=== PATIENT | male | born 1945 | race Two or more races ===

== ENCOUNTER 2017-03-24 18:41 | Inpatient (IN) | payer OTHER ==
[~2017-03-24] VITALS: Ht 162.6 cm; Wt 54.4 kg
[2017-03-24 20:21] LABS: Basophils # (auto) 0 uL; Basophils % (auto) 0.3 % (0.0-2.0); Eosinophils # (auto) 0 uL; Eosinophils % (auto) 0.1 % (0.0-7.0); Hematocrit 33.5 % (41.0-53.0); Hemoglobin 11.3 g/dL (13.5-17.5); Lymphocytes % (auto) 7.3 % (10.0-50.0); Mean Corpuscular Hgb Conc. 33.7 g/dL (32.0-36.0); Monocytes # (auto) 1.5 uL; Monocytes % (auto) 10.7 % (0.0-12.0); Neutrophils # (auto) 11.4 uL; Neutrophils % (auto) 81.6 % (37.0-80.0); Nucleated Red Blood Cells % 0.1 %; Platelet Count (auto) 358 10^3/uL (140-450); Red Blood Cells 3.42 10^6/uL (4.5-5.90); Red Cell Distribution Width 15.1 % (11.8-14.3)
[2017-03-24] MEDS ORDERED: SODIUM CHLORIDE 0.9% 1,000 ML IVB ONE (20:27)
[2017-03-24] MEDS ORDERED: SODIUM CHLORIDE 0.9% 500 ML IVB ONE (20:27)
[2017-03-24 20:30] LABS: Alanine Aminotransferase 99 U/L (16-61); Albumin 3.2 g/dL (3.4-5.0); Alkaline Phosphatase 787 U/L (45-117); Anion Gap 16 (5-15); Aspartate Aminotransferase 197 U/L (15-37); BUN/Creatinine Ratio 54.1; Bilirubin, Total 2.9 mg/dL (0.2-1.0); Calcium 9.5 mg/dL (8.5-10.1); Carbon Dioxide 23 mmol/L (21-32); Chloride 89 mmol/L (98-107); GFR African American 44 mL/min; GFR Non-African American 36 mL/min; Glucose 137 mg/dL (74-106); Potassium 4.6 mmol/L (3.5-5.1); Sodium 128 mmol/L (136-145); Total Protein 8.1 g/dL (6.4-8.2)
[2017-03-24] MEDS ORDERED: ONDANSETRON HCL 4 MG/2 ML VIAL IV ONE (20:30)
[2017-03-24 21:06] LABS: Blood Urea Nitrogen 106 mg/dL (7-18)
[2017-03-24 22:32] LABS: Lactic Acid w/Reflex 2.5 mmol/L (0.4-2.0)
[2017-03-24 22:38] LABS: INR 1.05 (0.9-1.15); Partial Thromboplastin Time 29.4 sec (22.64-33.71); Prothrombin Time 11.4 sec (9.37-12.3)
[2017-03-24] MEDS ORDERED: HYDROcodone-ACET 5/325MG TAB PO PRN (23:30)
[2017-03-24] MEDS ORDERED: ACETAMINOPHEN 325 MG TAB PO PRN (23:30)
[2017-03-24] MEDS ORDERED: MORPHINE SULF INJ 2 MG/ML SYRINGE 1ML IV PRN (23:30)
[2017-03-24] MEDS ORDERED: ONDANSETRON HCL 4 MG/2 ML VIAL IV PRN (23:30)
[2017-03-24] MEDS ORDERED: PPN PER PHARMACY 0 ML IV SCH (23:30)
[2017-03-24] MEDS ORDERED: NITROGLYCERIN 0.4 MG SL TAB SL PRN (23:30)
[2017-03-24] MEDS ORDERED: cefTRIAXone 1GM/10ml IVPUSH 10 ML IV ONE (23:45)
[2017-03-25 00:49] LABS: Urine Bacteria MOD /hpf (None Seen); Urine Blood Negative /uL (Negative); Urine Hyaline Cast MANY /lpf (0 - 2); Urine Mucus FEW (None Seen); Urine Specific Gravity 1.014 (1.001-1.035); Urine WBC 1 /hpf (0 - 3)
[2017-03-25 03:30] VITALS: BP 99/58
[2017-03-25 05:00] VITALS: BP 99/58
[2017-03-25 06:20] LABS: Basophils # (auto) 0 uL; Eosinophils # (auto) 0 uL; Eosinophils % (auto) 0.2 % (0.0-7.0); Hemoglobin 9.5 g/dL (13.5-17.5); Lymphocytes # (auto) 0.9 uL; Lymphocytes % (auto) 7.4 % (10.0-50.0); Monocytes # (auto) 1.4 uL; Neutrophils # (auto) 9.8 uL; White Blood Cell 12.1 10^3/uL (4.4-10.8)
[2017-03-25 06:22] LABS: Hematocrit 27.6 % (41.0-53.0); Mean Corpuscular Hemoglobin 33.7 pg (28.0-32.0); Mean Corpuscular Hgb Conc. 34.3 g/dL (32.0-36.0); Mean Corpuscular Volume 98.3 fL (80.0-100.0); Monocytes % (auto) 11.5 % (0.0-12.0); Neutrophils % (auto) 80.9 % (37.0-80.0); Platelet Count (auto) 292 10^3/uL (140-450); Red Cell Distribution Width 15.3 % (11.8-14.3)
[2017-03-25 06:56] LABS: Albumin 2.6 g/dL (3.4-5.0); BUN/Creatinine Ratio 68.2; Bilirubin, Total 2.4 mg/dL (0.2-1.0); Calcium 8.7 mg/dL (8.5-10.1); Total Protein 6.5 g/dL (6.4-8.2)
[2017-03-25 07:22] VITALS: BP 108/58
[2017-03-25 07:41] LABS: Magnesium 2.8 mg/dL (1.6-2.6)
[2017-03-25] MEDS ORDERED: ENOXAPARIN SOD 30 MG/0.3 ML SYRINGE SC SCH (10:00)
[2017-03-25] MEDS: PANTOPRAZOLE 40 MG/10 ML VIAL IV SCH (11:02)
[2017-03-25] MEDS ORDERED: GOLYTELY 4L KIT PO ONE (12:00)
[2017-03-25 12:13] VITALS: BP 92/52
[2017-03-25 17:07] VITALS: BP 103/49
[2017-03-25] MEDS ORDERED: PPN PER PHARMACY IV NR ×7 (20:00)
[2017-03-25] MEDS: ATORVASTATIN 20 MG TAB PO SCH (21:45)
[2017-03-25] MEDS: cefTRIAXone 1GM/10ml IVPUSH 10 ML IV SCH (21:47)
[2017-03-25 22:00] VITALS: BP 104/53
[2017-03-26] VITALS (7 sets, daily range): BP systolic 95–105; BP diastolic 50–59
[2017-03-26] MEDS ORDERED: DEXTROSE (50%) 50ML SYRG IV SCH
[2017-03-26] MEDS: ACCU-CHEK COMFORT CURVE STRIP VI SCH ×4 (00:52→18:25)
[2017-03-26] MEDS: InsuLIN REG 1unit/0.01ml Soln (100units/ml) SC SCH ×4 (00:53→18:00)
[2017-03-26] MEDS ORDERED: GOLYTELY 4L KIT PO ONE (06:00)
[2017-03-26 07:09] LABS: % Iron Saturation 34.8 % (20-55)
[2017-03-26 07:10] LABS: Bilirubin, Total 2.1 mg/dL (0.2-1.0); Calcium 9.4 mg/dL (8.5-10.1); Phosphorus 1.3 mg/dL (2.5-4.90); Potassium 3.4 mmol/L (3.5-5.1); Total Protein 6.6 g/dL (6.4-8.2)
[2017-03-26 07:11] LABS: Albumin 2.6 g/dL (3.4-5.0); Magnesium 2.6 mg/dL (1.6-2.6); Pre Albumin 8.6 mg/dL (20.0-40.0)
[2017-03-26 08:07] LABS: Urine Bacteria NONE SEEN /hpf (None Seen); Urine Blood Negative /uL (Negative); Urine Specific Gravity 1.015 (1.001-1.035); Urine WBC <1 /hpf (0 - 3)
[2017-03-26 08:12] LABS: Protein, Urine 16.7 mg/dL (0.0-11.9)
[2017-03-26] MEDS ORDERED: MIDAZOLAM HCL 5 MG/ML-1ML VIAL ONE (08:13)
[2017-03-26] MEDS ORDERED: diphenhdrAMINE HCL 50 MG/1 ML VL ONE (08:13)
[2017-03-26] MEDS ORDERED: fentaNYL CITRATE 100 MCG/2 ML VL ONE (08:13)
[2017-03-26] MEDS ORDERED: SODIUM CHLORIDE LOCK 10 ML ONE (08:13)
[2017-03-26] MEDS ORDERED: NALOXONE HCL 0.4 MG/ML VIAL ONE (08:14)
[2017-03-26] MEDS ORDERED: FLUMAZENIL 0.1 MG/ML INJ 10ML MDV IV ONE (08:14)
[2017-03-26] MEDS ORDERED: POTASSIUM CHL 20MEQ/100ML 100 ML IV ONE (10:00)
[2017-03-26] MEDS: ENOXAPARIN SOD 40 MG/0.4 ML SYRINGE SC SCH (10:00)
[2017-03-26] MEDS: PANTOPRAZOLE 40 MG/10 ML VIAL IV SCH (10:54)
[2017-03-26] MEDS ORDERED: SODIUM PHOSP 40 MEQ in D5W 5% 250 ML IV ONE (11:00)
[2017-03-26] MEDS ORDERED: PPN PER PHARMACY IV NR ×9 (20:00)
[2017-03-26] MEDS: cefTRIAXone 1GM/10ml IVPUSH 10 ML IV SCH (21:20)
[2017-03-26] MEDS: ATORVASTATIN 20 MG TAB PO SCH (22:14)
[2017-03-27] MEDS: ACCU-CHEK COMFORT CURVE STRIP VI SCH ×4 (00:57→17:36)
[2017-03-27 05:28] VITALS: BP 110/57
[2017-03-27] MEDS: InsuLIN REG 1unit/0.01ml Soln (100units/ml) SC SCH ×4 (06:00→17:36)
[2017-03-27 06:59] LABS: Basophils # (auto) 0 uL; Basophils % (auto) 0.1 % (0.0-2.0); Eosinophils # (auto) 0 uL; Eosinophils % (auto) 0.2 % (0.0-7.0); Hematocrit 26.6 % (41.0-53.0); Hemoglobin 9.1 g/dL (13.5-17.5); Lymphocytes # (auto) 1.1 uL; Lymphocytes % (auto) 9.5 % (10.0-50.0); Mean Corpuscular Hemoglobin 33.8 pg (28.0-32.0); Mean Corpuscular Volume 99.3 fL (80.0-100.0); Monocytes # (auto) 1.3 uL; Neutrophils # (auto) 9.2 uL; Neutrophils % (auto) 79.2 % (37.0-80.0); Nucleated Red Blood Cells % 0.1 %; Platelet Count (auto) 253 10^3/uL (140-450); Red Blood Cells 2.68 10^6/uL (4.5-5.90); Red Cell Distribution Width 15.5 % (11.8-14.3); White Blood Cell 11.6 10^3/uL (4.4-10.8)
[2017-03-27 07:22] LABS: Albumin 2.2 g/dL (3.4-5.0); BUN/Creatinine Ratio 37.6; Bilirubin, Total 1.9 mg/dL (0.2-1.0); Calcium 8.5 mg/dL (8.5-10.1); Magnesium 2.1 mg/dL (1.6-2.6); Phosphorus 1.7 mg/dL (2.5-4.90); Potassium 3.5 mmol/L (3.5-5.1); Total Protein 5.9 g/dL (6.4-8.2)
[2017-03-27 08:51] VITALS: BP 108/57
[2017-03-27] MEDS: PANTOPRAZOLE 40 MG/10 ML VIAL IV SCH (09:37)
[2017-03-27] MEDS: ENOXAPARIN SOD 40 MG/0.4 ML SYRINGE SC SCH (10:00)
[2017-03-27] MEDS ORDERED: POTASSIUM CHL 10MEQ/100ML IV ONE (11:00)
[2017-03-27] MEDS ORDERED: SODIUM PHOSP 40 MEQ in D5W 5% 250 ML IV ONE (12:00)
[2017-03-27 15:08] VITALS: BP 115/60
[2017-03-27 17:48] VITALS: BP 111/57
[2017-03-27 20:00] VITALS: BP 118/63
[2017-03-27] MEDS ORDERED: PPN PER PHARMACY IV NR ×11 (20:00)
[2017-03-27] MEDS: cefTRIAXone 1GM/10ml IVPUSH 10 ML IV SCH (21:00)
[2017-03-27] MEDS: ATORVASTATIN 20 MG TAB PO SCH (21:56)
[2017-03-27 22:00] VITALS: BP 118/63
[2017-03-28] MEDS: ACCU-CHEK COMFORT CURVE STRIP VI SCH ×5 (00:25→23:42)
[2017-03-28 05:56] VITALS: BP 115/58
[2017-03-28] MEDS: InsuLIN REG 1unit/0.01ml Soln (100units/ml) SC SCH ×5 (06:00→23:42)
[2017-03-28 07:13] LABS: Basophils # (auto) 0 uL; Basophils % (auto) 0.2 % (0.0-2.0); Eosinophils # (auto) 0 uL; Eosinophils % (auto) 0.4 % (0.0-7.0); Hematocrit 25.9 % (41.0-53.0); Hemoglobin 8.9 g/dL (13.5-17.5); Lymphocytes # (auto) 1.2 uL; Lymphocytes % (auto) 10.3 % (10.0-50.0); Mean Corpuscular Hemoglobin 33.8 pg (28.0-32.0); Mean Corpuscular Hgb Conc. 34.2 g/dL (32.0-36.0); Mean Corpuscular Volume 98.8 fL (80.0-100.0); Monocytes # (auto) 1.2 uL; Monocytes % (auto) 10.9 % (0.0-12.0); Neutrophils % (auto) 78.2 % (37.0-80.0); Platelet Count (auto) 237 10^3/uL (140-450); Red Blood Cells 2.62 10^6/uL (4.5-5.90); Red Cell Distribution Width 15.6 % (11.8-14.3); White Blood Cell 11.5 10^3/uL (4.4-10.8)
[2017-03-28 07:31] LABS: BUN/Creatinine Ratio 31.9; Calcium 8.3 mg/dL (8.5-10.1); Magnesium 1.9 mg/dL (1.6-2.6); Phosphorus 2.3 mg/dL (2.5-4.90); Potassium 3.9 mmol/L (3.5-5.1)
[2017-03-28 08:57] LABS: Albumin 2.1 g/dL (3.4-5.0); Bilirubin, Total 2.1 mg/dL (0.2-1.0); Total Protein 5.7 g/dL (6.4-8.2)
[2017-03-28 09:00] VITALS: BP 111/63
[2017-03-28] MEDS: ENOXAPARIN SOD 40 MG/0.4 ML SYRINGE SC SCH (10:00)
[2017-03-28] MEDS: PANTOPRAZOLE 40 MG/10 ML VIAL IV SCH (10:08)
[2017-03-28 13:00] VITALS: BP 105/55
[2017-03-28 17:00] VITALS: BP 122/69
[2017-03-28] MEDS ORDERED: PPN PER PHARMACY IV NR ×11 (20:00)
[2017-03-28] MEDS: cefTRIAXone 1GM/10ml IVPUSH 10 ML IV SCH (20:34)
[2017-03-28] MEDS: ATORVASTATIN 20 MG TAB PO SCH (21:52)
[2017-03-28 22:00] VITALS: BP 101/45
[2017-03-29 05:01] VITALS: BP 111/55
[2017-03-29] MEDS: ACCU-CHEK COMFORT CURVE STRIP VI SCH ×2 (05:15→13:33)
[2017-03-29] MEDS: InsuLIN REG 1unit/0.01ml Soln (100units/ml) SC SCH ×2 (05:15→13:33)
[2017-03-29 07:58] LABS: Basophils # (auto) 0 uL; Basophils % (auto) 0.3 % (0.0-2.0); Eosinophils # (auto) 0 uL; Eosinophils % (auto) 0.4 % (0.0-7.0); Hematocrit 27.1 % (41.0-53.0); Hemoglobin 9.2 g/dL (13.5-17.5); Lymphocytes # (auto) 1.2 uL; Lymphocytes % (auto) 10.5 % (10.0-50.0); Mean Corpuscular Hemoglobin 33.4 pg (28.0-32.0); Mean Corpuscular Hgb Conc. 33.8 g/dL (32.0-36.0); Mean Corpuscular Volume 98.9 fL (80.0-100.0); Monocytes # (auto) 1.3 uL; Monocytes % (auto) 11.2 % (0.0-12.0); Neutrophils # (auto) 9.2 uL; Neutrophils % (auto) 77.6 % (37.0-80.0); Nucleated Red Blood Cells % 0.1 %; Platelet Count (auto) 239 10^3/uL (140-450); Red Blood Cells 2.74 10^6/uL (4.5-5.90); Red Cell Distribution Width 15.7 % (11.8-14.3); White Blood Cell 11.8 10^3/uL (4.4-10.8)
[2017-03-29 08:00] VITALS: BP 113/59
[2017-03-29 08:23] LABS: Albumin 2.1 g/dL (3.4-5.0); BUN/Creatinine Ratio 27.8; Bilirubin, Total 2.4 mg/dL (0.2-1.0); Calcium 8.6 mg/dL (8.5-10.1); Magnesium 1.9 mg/dL (1.6-2.6); Phosphorus 1.6 mg/dL (2.5-4.90); Potassium 4.1 mmol/L (3.5-5.1); Total Protein 5.9 g/dL (6.4-8.2)
[2017-03-29 09:00] VITALS: BP 113/59
[2017-03-29] MEDS: ENOXAPARIN SOD 40 MG/0.4 ML SYRINGE SC SCH (09:27)
[2017-03-29] MEDS: PANTOPRAZOLE 40 MG/10 ML VIAL IV SCH (09:27)
[2017-03-29] MEDS ORDERED: SODIUM PHOSP 40 MEQ in D5W 5% 250 ML IV ONE (11:15)
[2017-03-29 13:00] VITALS: BP 113/56
[2017-03-29 17:00] VITALS: BP 123/59
[2017-03-29] MEDS ORDERED: PPN PER PHARMACY IV NR ×11 (20:00)
== END 2017-03-29 18:30 | disposition hospice, home (50) | DRG 871 ==
LOC: ER 18:49 → TELE 18:50 → TELE-CENTR 03-25 03:30
PROVIDERS: ADMIT Nurse Practitioner; ATTEND Family Medicine
PROC: 0DBL8ZX Excision of Transverse Colon, Via Natural or Artificial Opening Endoscopic, Diagnostic (ICD-10-PCS; principal; 2017-03-26 11:34)
DX: A41.9 Sepsis, unspecified organism (principal); K85.90 Acute pancreatitis without necrosis or infection, unspecified; N17.0 Acute kidney failure with tubular necrosis; K56.609 Unspecified intestinal obstruction, unspecified as to partial versus complete obstruction; C78.7 Secondary malignant neoplasm of liver and intrahepatic bile duct; C77.9 Secondary and unspecified malignant neoplasm of lymph node, unspecified; C18.9 Malignant neoplasm of colon, unspecified; D64.9 Anemia, unspecified; I69.351 Hemiplegia and hemiparesis following cerebral infarction affecting right dominant side; E87.1 Hypo-osmolality and hyponatremia; C79.51 Secondary malignant neoplasm of bone; E11.22 Type 2 diabetes mellitus with diabetic chronic kidney disease; K64.4 Residual hemorrhoidal skin tags; K64.8 Other hemorrhoids; E78.00 Pure hypercholesterolemia, unspecified; E78.5 Hyperlipidemia, unspecified; E86.0 Dehydration; I12.9 Hypertensive chronic kidney disease with stage 1 through stage 4 chronic kidney disease, or unspecified chronic kidney disease; N18.3 Chronic kidney disease, stage 3 (moderate); Z51.5 Encounter for palliative care; Z72.0 Tobacco use; Z80.51 Family history of malignant neoplasm of kidney; Z82.0 Family history of epilepsy and other diseases of the nervous system; Z82.49 Family history of ischemic heart disease and other diseases of the circulatory system; Z83.3 Family history of diabetes mellitus
CPT/HCPCS: 36415; 45380; 71045; 74176; 76705; 80048; 80053; 81001; 82040; 82150; 82247; 82306; 82378; 82570; 82962; 83540; 83550; 83605; 83690; 83735; 84075; 84100; 84155; 84156; 84300; 84443; 84450; 84460; 84478; 84484; 84550; 85025; 85610; 85730; 86850; 86900; 86901; 87040; 88341; 93005; 96361; 96374; C9113; J1815; J2250; J2405; J3480; J7060; J7131